=== PATIENT | male | born 1940 | race American Indian/Alaskan Native ===

== ENCOUNTER 2016-10-25 08:07 | Emergency (ER) | payer MEDICARE ==
[2016-10-25 08:15] VITALS: BMI 32.5
--- NOTE | 2016-10-25 09:23 | C.PDOC ---
History Of Present Illness 76 year old male presents to the ED with complaints of intermittent bilateral lower leg edema for one month. Patient states he has been using compression socks on and off with minimal relief and symptoms persist. He denies any trauma , fever, rash, numbness, weakness, SOB, chest pain, fever, and cough. Time Seen by Provider: 10/25/16 08:38 Chief Complaint (Nursing): Lower Extremity Problem/Injury History Per: Patient History/Exam Limitations: no limitations Onset/Duration Of Symptoms: Persistent (one month ) Current Symptoms Are (Timing): Still Present Pain Scale Rating Of: 1 Recent travel outside of the [place]: No Past Medical History Reviewed: Historical Data, Nursing Documentation, Vital Signs Vital Signs: Last Vital Signs Temp 97.8 F 10/25/16 11:52 Pulse 60 10/25/16 11:52 Resp 18 10/25/16 11:52 BP 141/75 10/25/16 11:52 Pulse Ox 98 10/25/16 18:01 - Medical History PMH: Arthritis, Deep Vein Thrombosis, HTN, Hypercholesterolemia Surgical History: Coronary Stent Family History: States: Unknown Family Hx - Social History Hx Alcohol Use: Yes Hx Substance Use: No - Immunization History Hx Tetanus Toxoid Vaccination: No Hx Influenza Vaccination: No Hx Pneumococcal Vaccination: No Review Of Systems Except As Marked, All Systems Reviewed And Found Negative. Constitutional: Negative for: Fever, Chills Cardiovascular: Negative for: Chest Pain, Palpitations Respiratory: Negative for: Cough, Shortness of Breath Musculoskeletal: Positive for: Other (bilateral leg swelling ) Physical Exam - Physical Exam Appears: Non-toxic, No Acute Distress Skin: Warm, Dry, No Rash Head: Atraumatic, Normacephalic Eye(s): bilateral: Normal Inspection, PERRL, EOMI Oral Mucosa: Moist Neck: Supple Chest: Symmetrical, No Deformity Cardiovascular: Rhythm Regular, No Murmur Respiratory: Normal Breath Sounds, No Rhonchi, No Wheezing Gastrointestinal/Abdominal: Normal Exam, Soft, No Tenderness, No Distention, No Guarding Back: Normal Inspection, No CVA Tenderness Extremity: Normal ROM, No Tenderness, Other (2+pitting edema ) Neurological/Psych: Oriented x3, Normal Speech, Normal Cognition, Normal Cranial Nerves, Normal Motor, Normal Sensation Gait: Steady ED Course And Treatment - Laboratory Results Result Diagrams: 10/25/16 09:36 10/25/16 09:36 Lab Interpretation: Normal Interpretation Of ECG: Sinus bradycardia 59 bpm, P-wave abnormality non-specific O2 Sat by Pulse Oximetry: 98 (on RA) Pulse Ox Interpretation: Normal Medical Decision Making Medical Decision Making: On re-exam, the patient remains stable. Lungs are CTA, heart is RRR, ambulatory in the Ed with steady gait. Abdomen is soft, non-tender and tolerating PO well. Follow up with the medical doctor/clinic within 1-2 days, Return if worsened, Disposition Counseled Patient/Family Regarding: Studies Performed, Diagnosis, Need For Followup, Rx Given - Disposition Referrals: [facility] [Outside] Disposition: HOME/ ROUTINE Disposition Time: 11:44 Condition: GOOD Additional Instructions: Continue to wear the compression stockings while walking. Follow up with the medical doctor/clinic within 1-2 days, Return if worsened Prescriptions: Furosemide [Lasix] 20 mg PO DAILY #20 tab Instructions: Leg Edema (ED) - Clinical Impression Clinical Impression: Leg edema - Scribe Statement The provider has reviewed the documentation as recorded by the Scriblennie Nina All medical record entries made by the Lynneiblennie were at my direction and personally dictated by me. I have reviewed the chart and agree that the record accurately reflects my personal performance of the history, physical exam, medical decision making, and the department course for this patient. I have also personally directed, reviewed, and agree with the discharge instructions and disposition.
[2016-10-25 09:43] LABS: BASO % 0.6 % (0.0-2.0); EOS # 0.1 K/uL (0.0-0.7); HEMOGLOBIN 10.9 g/dL (12.0-18.0); LYMPH # 1.6 K/uL (1.0-4.3); LYMPH % 23.2 % (20.0-40.0); MEAN CELL VOLUME 84.9 fL (80.0-94.0); MEAN CORPUSCULAR HGB CONC 31.8 g/dL (33.0-37.0); MEAN PLATELET VOLUME 10.5 fL (7.2-11.7); MONO # 0.8 K/uL (0.0-0.8); MONO % 11.3 % (0.0-10.0); NEUT # 4.4 K/uL (1.8-7.0); NEUT % 62.9 % (50.0-75.0); NRBC % 0.1 % (0.0-2.0); RBC 4.05 Mil/uL (4.40-5.90); RED CELL DISTRIBUTION WIDTH 16.7 % (11.5-14.5)
[2016-10-25 09:51] LABS: ALBUMIN 3.9 g/dL (3.5-5.0)
[2016-10-25 09:54] LABS: ALB/GLOB RATIO 1.2 (1.0-2.1); ALT/SGPT 22 U/L (21-72); AST/SGOT 24 U/L (17-59); BLOOD UREA NITROGEN 16 mg/dL (9-20); CALCIUM 8.7 mg/dl (8.6-10.4); GFR AFRICAN-AMERICAN > 60; GFR NON-AFRICAN AMERICAN 59
[2016-10-25 10:04] LABS: B-TYPE NATRIURETIC PEPTIDE 109 pg/mL (0-900)
[2016-10-25 10:39] VITALS: TEMP 97.8
--- NOTE | 2016-10-25 10:47 | RAD ---
PROCEDURE: CHEST RADIOGRAPH, 1 VIEW HISTORY: SOB COMPARISON: None available. FINDINGS: LUNGS: Clear. PLEURA: No pneumothorax or pleural fluid seen. CARDIOVASCULAR: Cardiomegaly. No evidence of acute, significant cardiovascular disease. Incidental Finding(s): Postoperative changes related to sternotomy. OSSEOUS STRUCTURES: No significant abnormalities. VISUALIZED UPPER ABDOMEN: Normal. OTHER FINDINGS: Metallic foreign bodies/fragments overlying the left gabriel thorax IMPRESSION: No active disease.
[2016-10-25 11:47] VITALS: O2SAT 98
[2016-10-25 11:53] VITALS: BP 141/75; PULSE 60; RESP 18
--- NOTE | 2016-10-28 13:08 | CARD ---
APPROVED REPORT EKG Measurement Heart [id number] <Conclusion> Unusual P axis, possible ectopic atrial bradycardia Moderate voltage criteria for LVH, may be normal variant Abnormal ECG
== END 2016-10-25 12:01 | disposition home or self-care (01) ==
LOC: C.ER 08:07
DX: R60.0 Localized edema (principal)

== ENCOUNTER 2017-01-04 11:52 | Emergency (ER) | payer MEDICARE ==
[2017-01-04 11:52] VITALS: BMI 32.5
[2017-01-04 12:06] VITALS: RESP 18
--- NOTE | 2017-01-04 12:37 | C.PDOC ---
History Of Present Illness Patient is a 76 y/o male, with a PMHx of PVD, DVT, and HTN, who presents to the ED requesting a leg ultrasound per his PCP Dr. De. Patient states he missed his appointment yesterday for ultrasound, and came to ED today. Patient admits to bilateral lower extremity swelling for months, and noted left leg appearing more swollen for the past few weeks. Patient notes experiencing SOB on exertion, but denies any chest pain. Patient admits he is compliant with his medications. Time Seen by Provider: 01/04/17 12:27 Chief Complaint (Nursing): Lower Extremity Problem/Injury History Per: Patient History/Exam Limitations: no limitations Onset/Duration Of Symptoms: Days (bilateral lower extremity swelling for months ; LLE swelling worsened within past few weeks.) Current Symptoms Are (Timing): Still Present Recent travel outside of the [place]: No Past Medical History Reviewed: Historical Data, Nursing Documentation, Vital Signs Vital Signs: Last Vital Signs Temp 98.2 F 01/04/17 14:50 Pulse 72 01/04/17 14:50 Resp 18 01/04/17 14:50 BP 128/72 01/04/17 14:50 Pulse Ox 98 01/04/17 14:50 - Medical History PMH: Arthritis, Deep Vein Thrombosis, HTN, Hypercholesterolemia Other PMH: PVD Surgical History: Coronary Stent Family History: States: Unknown Family Hx - Social History Hx Alcohol Use: Yes Hx Substance Use: No - Immunization History Hx Tetanus Toxoid Vaccination: No Hx Influenza Vaccination: No Hx Pneumococcal Vaccination: No Review Of Systems Constitutional: Negative for: Fever, Weakness, Malaise Cardiovascular: Negative for: Chest Pain Respiratory: Positive for: SOB with Excertion. Negative for: Cough Gastrointestinal: Negative for: Abdominal Pain Neurological: Negative for: Weakness, Numbness, Headache, Dizziness Physical Exam - Physical Exam Appears: Well, Non-toxic, Other (comfortable; obese. ) Skin: Normal Color, Warm, Dry Head: Atraumatic, Normacephalic Eye(s): bilateral: Normal Inspection, EOMI Oral Mucosa: Moist Neck: Normal ROM Chest: Symmetrical Cardiovascular: Rhythm Regular, No Murmur Respiratory: Normal Breath Sounds, No Rales, No Rhonchi, No Wheezing Extremity: Normal ROM, Pedal Edema (bilateral pitting pedal edema. ), No Calf Tenderness, No Deformity, Other (no erythema; pulses palpable. ) Neurological/Psych: Oriented x3, Normal Speech, Other (no other focal deficits. ) Gait: Steady ED Course And Treatment O2 Sat by Pulse Oximetry: 99 (Room air ) Pulse Ox Interpretation: Normal - CT Scan/US LLE Other Rad Studies (CT/US): Interpreted By Me, Read By Radiologist Medical Decision Making Medical Decision Making: Plan: venous duplex scan LLE ordered. Results: Doppler showed no abnormality or DVT. Patient advised of results and instructed to follow up with DR De and to continue with his medications Disposition Counseled Patient/Family Regarding: Need For Followup, Rx Given - Disposition Referrals: Sarah De MD [Primary Care Provider] - Disposition: HOME/ ROUTINE Disposition Time: 14:28 Condition: STABLE Additional Instructions: Your venous doppler Ultrasound was negative Please follow up with your care worker and doctor Instructions: Leg Edema (ED) Forms: [employer] ([place]) - POA Present On Arrival: None - Clinical Impression Clinical Impression: Leg edema - Scribe Statement The provider has reviewed the documentation as recorded by the Scribe Joseline Ahuja All medical record entries made by the Scribe were at my direction and personally dictated by me. I have reviewed the chart and agree that the record accurately reflects my personal performance of the history, physical exam, medical decision making, and the department course for this patient. I have also personally directed, reviewed, and agree with the discharge instructions and disposition.
[2017-01-04 15:01] VITALS: BP 128/72; PULSE 72; TEMP 98.2
[2017-01-04 15:04] VITALS: O2SAT 99
--- NOTE | 2017-01-07 09:52 | VASCLAB ---
PROCEDURE: Left Lower Extremity Venous Duplex Exam. HISTORY: leg swelling worsening, r.o DVT PRIORS: None. TECHNIQUE: Left common femoral, femoral, popliteal and posterior tibial, peroneal and great saphenous veins were evaluated. Flow was assessed with color Doppler, compressibility, assessment of phasic flow and augmentation response. Report prepared by PAU Theodore FINDINGS: LEFT: 1. Common Femoral Vein: 1.1. Compressibility - Fully compressible: Thrombus - None : Flow - Phasic: Augmentation -Normal: Reflux - None. 2. Femoral Vein: 2.1. Compressibility - Fully compressible: Thrombus - None: Flow - Phasic: Augmentation -Normal: Reflux - None. 3. Popliteal Vein: 3.1. Compressibility - Fully compressible: Thrombus - None: Flow - Phasic: Augmentation -Normal: Reflux - None. 4. Posterior Tibial Vein: 4.1. Compressibility - Fully compressible: Thrombus - None: Flow - Phasic: Augmentation -Normal: Reflux - None. 5. Peroneal Vein: 5.1. Compressibility - Fully compressible: Thrombus - None: Flow - Phasic: Augmentation -Normal: Reflux - None. 6. Great Saphenous Vein: 6.1. Not visualized. OTHER FINDINGS: IMPRESSION: No evidence of deep or superficial vein thrombosis of the left lower extremity with excellent venous flow. Normal valve function noted of the left side. Normal venous flow noted in the right common femoral vein.
== END 2017-01-04 15:01 | disposition home or self-care (01) ==
LOC: C.ER 11:52 → SUPCPDRO 11:52 → C.ER 15:01
DX: R60.0 Localized edema (principal)

== ENCOUNTER 2018-06-02 08:36 | Outpatient (CLI) | payer MEDICARE | END 2018-06-02 08:37 | disposition home or self-care (01) | LOC: C.PAT 08:36 ==

== ENCOUNTER 2018-06-08 07:19 | Day surgery (SDC) | payer MEDICARE ==
[2018-06-08] MEDS ORDERED: DiphenhydrAMINE 50 mg/ml Inj IVP STA (14:02)
[2018-06-08] MEDS ORDERED: Iodixanol 320 MG/ML 200 ML BOTTLE IV ONE (14:35)
[2018-06-08] MEDS ORDERED: Midazolam 2 MG/2 ML VIAL ONE ×2 (14:35→14:53)
[2018-06-08 21:28] VITALS: BMI 35.2
--- NOTE | 2018-06-09 05:02 | CARDCATH ---
PROCEDURE DATE: 06/08/2018 INDICATIONS: Mr. Mtz is a 78-year-old male with past medical history significant for CAD, CABG, peripheral vascular occlusive disease status post multiple bypass and vascular stenting who was having severe ischemia, underwent a CTA which showed severe left iliac occlusion and therefore was brought to the [facility] for further evaluation and treatment. He had also undergone a nuclear stress test which was abnormal. Therefore, he underwent a left heart catheterization with selective left and right coronary angiogram, selective HICKEY to LAD angiogram. PROCEDURE PERFORMED: A 6-Mal[place]ian right femoral arterial access, distal abdominal aortogram with bilateral iliac runoff. ANGIOGRAPHIC FINDINGS OF THE CORONARY SYSTEM: Left main is a large sized vessel, bifurcates into left anterior descending and left circumflex coronary artery. Left main has a stent in the body which is widely patent. Left circumflex runs in the groove, which is patent distally: Left circumflex is 100% occluded, gives off collateral flow to the right PDA. Left anterior descending artery has a proximal 85% stenosis, gives off a diagonal branch which is patent. HICKEY to left anterior descending artery is patent. RCA proximally 100% PLUCK TRIMMER. HICKEY to LAD is patent. Left main ostia 65% stenosis. LVF is about 65%. Distal abdominal aorta, left common iliac completely occluded. Left external iliac completely occluded. SFA and profunda femoris of the left lower extremity are completely occluded. There is aortofemoral graft but only vessel patent is few branches of the profunda which have collateralized flow. There was no flow noted in the left lower extremity. Right lower extremity, right common iliac, external iliac patent. IMPRESSION: 1. Severe peripheral vascular occlusive disease. 2. Severe cheesh-na coronary artery disease, only vessel patent is left internal mammary artery to left anterior descending. RECOMMENDATIONS: The patient is to undergo evaluation for revascularization by Vascular Surgery but there is no distal targets identified. Continue aggressive medical management, risk factor modification. Sergio Barry MD
== END 2018-06-08 09:30 | disposition home or self-care (01) ==
LOC: C.CATHLAB 07:19
PROVIDERS: ATTEND Internal Medicine Interventional Cardiology
DX: I73.9 Peripheral vascular disease, unspecified (principal); I77.1 Stricture of artery; I25.10 Atherosclerotic heart disease of native coronary artery without angina pectoris; Z95.1 Presence of aortocoronary bypass graft; Z95.5 Presence of coronary angioplasty implant and graft
CPT/HCPCS: 36140; 36245; 75710; 93459; 99152; 99153; C1725; C1758; C1766; C1769; C1887; J1200; J1644; J2250; J2930; J3010; Q9966